=== PATIENT | female | born 1950 | race Caucasian/White ===

== ENCOUNTER → 2024-06-16 | Outpatient (CLI) | payer OTHER ==
[~2024-06-16] VITALS: Ht 157.5 cm; Wt 91.5 kg
[~2024-06-16] MED LIST: ASPI-556 PO; ATOR20TA65 PO; CETI10TA57 PO; CYAN-106 PO; FURO-152 PO; GLIM4TAB36 PO; LOSA50TA64 PO; METO-391 PO; METO-408 PO; PITA4TAB2 PO; RIVA15TA PO; TIRZ10PE SQ
[2024-06-16 09:00] LABS: BASOPHILS # (AUTO) 0.03 K/uL (0.00-0.20); BASOPHILS % (AUTO) 0.3 % (0.0-5.0); EOSINOPHILS # (AUTO) 0.11 K/uL (0.00-0.70); EOSINOPHILS % (AUTO) 1.1 % (0.0-8.0); HEMATOCRIT 40.8 % (36-48); IMMATURE GRANULOCYTE ABSOLUTE 0.04 K/uL (0-1); LYMPHOCYTES # (AUTO) 1.8 K/uL (1.0-4.8); LYMPHOCYTES % (AUTO) 17.8 % (21.0-51.0); MEAN CORPUSCULAR HEMOGLOBIN 31.9 pg (27.0-33.0); MEAN CORPUSCULAR HGB CONC 32.4 g/dL (32.0-36.0); MEAN CORPUSCULAR VOLUME 98.6 fL (79-99); MONOCYTES # (AUTO) 0.5 K/uL (0.1-1.0); MONOCYTES % (AUTO) 4.6 % (3.0-13.0); NEUTROPHILS # (AUTO) 7.6 K/uL (1.8-7.7); NEUTROPHILS % (AUTO) 75.8 % (40.0-77.0); PLATELET COUNT (AUTO) 198 K/uL (130-400); RED BLOOD CELL COUNT(AUTO) 4.14 MIL/uL (4.00-5.50); RED CELL DISTRIBUTION WIDTH 13.4 % (11.0-15.5)
[2024-06-16 09:10] LABS: CREATININE 1.5 mg/dL (0.5-1.0); POTASSIUM 4.8 mmol/L (3.5-5.1)
[2024-06-16 09:12] LABS: INR 0.95 (0.85-1.15); PROTHROMBIN TIME 10.3 SEC (9.6-11.6)
[2024-06-16 09:55] VITALS: BP 200/96; PULSE 92; RESP 19
== END | disposition home or self-care (01) ==
LOC: EDSTATUS 08:00 → DAH 10:00
PROVIDERS: ATTEND Internal Medicine Cardiovascular Disease
DX: Z01.818 Encounter for other preprocedural examination (principal); R07.9 Chest pain, unspecified; I47.20 Ventricular tachycardia, unspecified; Z88.0 Allergy status to penicillin
CPT/HCPCS: 36415; 71045; 80048; 85025; 85610; 85730; 93005

== ENCOUNTER 2024-09-27 05:58 | Day surgery (SDC) | payer OTHER ==
[2024-09-22 12:28] LABS: BASOPHILS # (AUTO) 0.02 K/uL (0.00-0.20); BASOPHILS % (AUTO) 0.2 % (0.0-5.0); EOSINOPHILS # (AUTO) 0.16 K/uL (0.00-0.70); HEMATOCRIT 40.4 % (36-48); IMMATURE GRANULOCYTE ABSOLUTE 0.03 K/uL (0-1); LYMPHOCYTES # (AUTO) 2.1 K/uL (1.0-4.8); LYMPHOCYTES % (AUTO) 25.2 % (21.0-51.0); MEAN CORPUSCULAR HEMOGLOBIN 32.6 pg (27.0-33.0); MEAN CORPUSCULAR HGB CONC 32.9 g/dL (32.0-36.0); MONOCYTES # (AUTO) 0.5 K/uL (0.1-1.0); MONOCYTES % (AUTO) 5.7 % (3.0-13.0); NEUTROPHILS # (AUTO) 5.4 K/uL (1.8-7.7); NEUTROPHILS % (AUTO) 66.5 % (40.0-77.0); PLATELET COUNT (AUTO) 193 K/uL (130-400); RED BLOOD CELL COUNT(AUTO) 4.08 MIL/uL (4.00-5.50); RED CELL DISTRIBUTION WIDTH 13.2 % (11.0-15.5); WHITE BLOOD COUNT (AUTO) 8.2 K/uL (4.8-10.8)
[2024-09-22 12:37] LABS: CREATININE 1.8 mg/dL (0.5-1.0); POTASSIUM 5.2 mmol/L (3.5-5.1)
[2024-09-22 12:39] LABS: INR 0.95 (0.85-1.15); PROTHROMBIN TIME 10.3 SEC (9.6-11.6)
[2024-09-22 12:40] LABS: PARTIAL THROMBOPLASTIN TIME 28.4 SEC (26.3-35.5)
[2024-09-22 12:46] LABS: B-TYPE NATRIURETIC PEPTIDE 110 pg/mL (0-100)
[2024-09-22 12:48] VITALS: BP 177/91; PULSE 88; RESP 16; TEMP 97.4
--- NOTE | 2024-09-22 12:56 | NUR ---
report pt on xarelto daily. received instructions from tala schuler to hold 48 hrs prior. pt notified
--- NOTE | 2024-09-22 13:18 | HMCIMG ---
CHEST 1VW REASON: PRE OP COMPARISON: 06/16/2024 FINDINGS: Single view of the chest was obtained. Lungs are clear. Heart size is normal. There is no pulmonary vascular congestion. Mediastinum and bony thorax appear unremarkable. IMPRESSION: 1. Normal single view chest x-ray.
--- NOTE | 2024-09-22 16:00 | NUR ---
REPORT REPORTED BMP TO ANDREI WEI. RECEIVED ORDERS TO CHANGE FUROSEMIDE TO QOD NOT DAILY AND REPEAT BMP AM OF PROCEDURE. PT NOTIFIED
--- NOTE | 2024-09-23 05:46 | EKG ---
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
[~2024-09-27] VITALS: Ht 157.5 cm; Wt 92.6 kg
[2024-09-27] VITALS (9 sets, daily range): BP systolic 108–180; BP diastolic 53–91; PULSE 85–94; RESP 18; TEMP 97.9–98
[~2024-09-27 05:58] MED LIST changes: +ERGO400T7 PO; -METO-408 PO; -PITA4TAB2 PO
[2024-09-27] MEDS ORDERED: IOHEXOL 350 MG/ML 100ML INFUS..BTL IV ONE (07:11)
[2024-09-27] MEDS ORDERED: LIDOCAINE HCL 400MG/20ML VIAL ONE (07:11)
[2024-09-27] MEDS ORDERED: HEParin-NS 1,000 UNIT/500 ML 1,000 ML IV ONE (07:12)
[2024-09-27] MEDS ORDERED: NITROGLYCERIN 50MG VIAL ONE (07:12)
[2024-09-27] MEDS ORDERED: HEParin 10,000 UNIT/10ML (1,000 UNIT/ML) VIAL ONE (07:12)
[2024-09-27] MEDS: 0.9%NACL 1000ML 1,000 ML IV SCH (07:16)
[2024-09-27] MEDS: 0.9%NACL 1000ML 1,000 ML IV ONE (07:16)
[2024-09-27] MEDS ORDERED: FENTanyl CITRate PF 50 MCG/1 ML 2ML VIAL ONE (07:21)
[2024-09-27] MEDS ORDERED: MIDAZOLAM HCL 1 MG/ML 2ML VIAL ONE (07:21)
[2024-09-27] MEDS ORDERED: LAbetaLOL 20MG VIAL ONE (07:43)
--- NOTE | 2024-09-27 07:55 | PRN ---
Left Heart Cath-[facility] PROCEDURE: 1. Right common femoral arterial sheath placement. 2. Selective coronary angiogram. 3. Left heart catheterization. 4. 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 An IV was started, if not already in place and both groins were exposed for arterial access. 1% lidocaine was used for local anesthesia and then a micropuncture kit was used to gain access and once free-flowing blood was seen, modified Seldinger technique was utilized to place a 6 [place] sheath into the right common femoral artery. Next, preformed JL4 and JR4 Catheters were then used to selectively engage the barrow coronary vessels and multiple hand contrast injections were performed in different views to define the coronary anatomy. Next, a JR4 catheter was used to cross the aortic valve. Pressure measurements were obtained and Next, pullback method was performed. At the end of the case, sheath was pulled. Manual pressure was held. No complications occurred. FINDINGS: The left main artery bifurcates in the LAD and left circumflex in his slightly calcified with no stenosis present. The left anterior descending artery and its diagonal branch system are free of any significant stenosis. There is calcium noted in the proximal midportion of the LAD. Diagonal branch system is free of any significant disease. The left circumflex artery is a codominant vessel giving rise to the left posterolateral branch. The body of the circ and its obtuse marginal branch system are free of disease. The left posterolateral branches free of any significant stenosis. The right coronary artery is a codominant vessel giving rise to the right posterior descending artery. There is no significant stenosis present. LVEDP is elevated There was no evidence of aortic stenosis A left ventriculogram was not performed secondary to CKD IV ARMEN QUINTANA MD Sep 27, 2024 07:55
[2024-09-27] MEDS ORDERED: 0.9%NACL 1000ML 1,000 ML IV SCH (08:00)
[2024-09-27] MEDS ORDERED: GLUCAGON 1MG KIT 1 MG ML IM PRN (08:00)
[2024-09-27] MEDS ORDERED: DEXTROSE 50%-WATER 50 ML DISP.SYRIN IV PRN (08:00)
[2024-09-27] MEDS ORDERED: NITROGLYCERIN 0.4 MG SL TAB SL PRN (08:00)
[2024-09-27] MEDS ORDERED: INSULIN humuLIN R 100 UNIT/ML 3ML SQ SCH (11:30)
--- NOTE | 2024-09-27 17:07 | HMCSR ---
APPROVED REPORT EXAM: Two-dimensional and M-mode echocardiogram with Doppler and color Doppler. INDICATION ICD: nonischemic cardiomyopathy 2D Dimensions RVDd3.1 cmLVEF(%)32.9 (>50%)LVED Vol(simp.)113.0 mL IVSd0.9 (0.7-1.1cm)FS(%)16 %LVES Vol(simp.)64.4 mL LVDd4.5 (3.8-5.6cm)LA (2D)2.1 (1.6-4.0cm)LVEF(%, simp.)43 % PWd1.1 (0.7-1.1cm)Ao Root(2D)2.8 (2.0-3.7cm)LA ESV INDEX (4CH)9.40 mL/m2 IVSs1.0 cmLA ESV INDEX (2CH)15.30 mL/m2 LVDs3.8 (2.5-4.0cm)LA ESV INDEX (BP)12.80 mL/m2 PWs1.2 cm M-Mode Dimensions EPSS1.5 cm LA (MM)2.8 (1.6-4.0cm) Ao Root(MM)2.5 (2.0-3.7cm) Aortic Valve AoV VTI0.3 mAo Mean GR4.0 mmHgLVOT VTI0.14 m Mitral Valve MV E Vmax88.8 cm/sDECEL Time81 ms MV A Vmax23.8 cm/s E/A ratio3.7 MR Max PG47 mmHg TDI E/E' Bzpjdyd93.2 Lateral E' Peak V7.30 cm/s Left Ventricle The left ventricle is normal size. Borderline hypokinesis There is normal left ventricular wall thick ness. LVEF is 45-50%. The left ventricular diastolic function is normal. Right Ventricle The right ventricle is normal size. The right ventricular systolic function is normal. Atria The left atrium size is normal. The right atrium size is normal. Aortic Valve The aortic valve is normal in structure. No aortic regurgitation is present. There is no aortic valvu lar stenosis. Mitral Valve The mitral valve is normal in structure. There is no evidence of significant mitral regurgitation. Th ere is no mitral valve stenosis. Tricuspid Valve The tricuspid valve is normal in structure. There is no tricuspid valve regurgitation noted. Pulmonic Valve The pulmonary valve is normal in structure. There is no pulmonic valvular regurgitation. Great Vessels The aortic root is normal in size. The IVC is normal in size and collapses >50% with inspiration. Pericardium There is no pericardial effusion. Conclusion LVEF is 45-50%. The left atrium size is normal. No aortic regurgitation is present. There is no evidence of significant mitral regurgitation. There is no tricuspid valve regurgitation noted. The aortic root is normal in size. There is no pericardial effusion.
== END 2024-09-27 11:00 | disposition home or self-care (01) ==
LOC: DAH 05:58
PROVIDERS: ATTEND Internal Medicine Cardiovascular Disease
DX: I42.8 Other cardiomyopathies (principal); I35.0 Nonrheumatic aortic (valve) stenosis; R94.39 Abnormal result of other cardiovascular function study; I25.118 Atherosclerotic heart disease of native coronary artery with other forms of angina pectoris; E78.5 Hyperlipidemia, unspecified; I47.20 Ventricular tachycardia, unspecified; I13.0 Hypertensive heart and chronic kidney disease with heart failure and stage 1 through stage 4 chronic kidney disease, or unspecified chronic kidney disease; E11.22 Type 2 diabetes mellitus with diabetic chronic kidney disease; I50.40 Unspecified combined systolic (congestive) and diastolic (congestive) heart failure; N18.30 Chronic kidney disease, stage 3 unspecified; I25.2 Old myocardial infarction; J44.9 Chronic obstructive pulmonary disease, unspecified; Z88.0 Allergy status to penicillin; Z88.8 Allergy status to other drugs, medicaments and biological substances; Z87.891 Personal history of nicotine dependence; Z68.35 Body mass index [BMI] 35.0-35.9, adult; E66.9 Obesity, unspecified; Z79.82 Long term (current) use of aspirin; Z79.01 Long term (current) use of anticoagulants; Z79.899 Other long term (current) drug therapy
CPT/HCPCS: 80048; 83880; 85025; 85610; 85730; 36415; 71045; 93005; 93458; 82948 ×2; 93306; C1894 ×2; J3010; J3490 ×3; J7030; J2250; J1644; Q9967; A4215; A4222; A4221; A4663; A4216; A4606; A4223 ×3; 99156; 99157